=== PATIENT | female | born 1990 | race Caucasian/White ===

== ENCOUNTER → 2023-05-14 11:52 | Outpatient (CLI) | payer BC, SELFPAY ==
[2023-05-15 14:37] LABS: Candida species Positive (Negative); Gardnerella vaginalis Negative (Negative); Trichomoas vaginalis Negative (Negative)
== END ==
PROVIDERS: Visit Provider Obstetrics & Gynecology
DX: N89.8 Other specified noninflammatory disorders of vagina (principal)
CPT/HCPCS: 87480; 87510; 87660

== ENCOUNTER → 2023-08-18 12:06 | Outpatient (CLI) | payer BC, SELFPAY ==
[2023-08-19 14:36] LABS: Candida species Negative (Negative); Gardnerella vaginalis Negative (Negative); Trichomoas vaginalis Negative (Negative)
== END ==
PROVIDERS: Visit Provider Student in an Organized Health Care Education/Training Program
DX: B37.31 Acute candidiasis of vulva and vagina (principal); N89.8 Other specified noninflammatory disorders of vagina
CPT/HCPCS: 87102; 87480; 87510; 87660